=== PATIENT | female | born 1985 | race Hispanic/Latino ===

== ENCOUNTER 2025-06-22 15:44 | Emergency (ER) | payer SELFPAY ==
[~2025-06-22] VITALS: Ht 152.4 cm; Wt 68.0 kg
[~2025-06-22 15:44] MED LIST: DOCU-116 PO; IBUP-2077 PO; LEVO-70 PO
[2025-06-22 16:27] LABS: APPEARANCE,URINE CLEAR (CLEAR); GLUCOSE, URINE (UA) NEGATIVE (NEGATIVE); LEUKOCYTE ESTERASE ,URINE NEGATIVE Leu/uL (NEGATIVE); NITRATE,URINE NEGATIVE (NEGATIVE); OCCULT BLOOD,URINE NEGATIVE (NEGATIVE)
[2025-06-22 16:29] LABS: ADD UA MICROSCOPIC NO
[2025-06-22 16:30] LABS: HCG,QUALITATIVE URINE NEGATIVE (NEGATIVE)
[2025-06-22 16:34] LABS: IMMATURE GRANULOCYTE ABSOLUTE 0.02 K/uL (0-1); NUCLEATED RED BLOOD CELLS 0.0 % (0.0-0.19); PLATELET COUNT (AUTO) 240 K/uL (130-400); RED BLOOD CELL COUNT(AUTO) 3.88 MIL/uL (4.00-5.50); RED CELL DISTRIBUTION WIDTH 16.0 % (11.0-15.5); WHITE BLOOD COUNT (AUTO) 7.2 K/uL (4.8-10.8)
[2025-06-22 16:42] LABS: CREATININE 0.7 mg/dL (0.5-1.0); GLOMERULAR FILTR. RATE CALC 114.0 mL/min (>90); GLUCOSE,RANDOM 80.0 mg/dL (70-105); SODIUM SERUM 138.0 mmol/L (136-145); UREA NITROGEN, BLOOD 18.0 mg/dL (7-18)
[2025-06-22 16:47] LABS: ASPARTATE AMINOTRANSFERASE 47.0 U/L (10-37); TOTAL PROTEIN, SERUM 6.9 g/dL (6.0-8.3)
--- NOTE | 2025-06-22 18:34 | ERN ---
ED Note History of Present Illness Stated Complaint: ABDOMINAL PAIN Chief Complaint: Abdominal Pain Time Seen by MD: 15:49 Time Seen by Midlevel: 15:49 Dictation: The patient is a 39-year-old female with a history of appendectomy, who presents to the emergency department with complaints of right lower abdominal pain onset two weeks ago that has been on and off. Patient reports fevers. Denies any nausea or vomiting, denies diarrhea or constipation. Allergies: Coded Allergies: No Known Drug Allergies (Unverified Allergy, Unknown, 12/26/16) Home Meds Active Scripts Levofloxacin (Levofloxacin) 500 Mg Tablet, 1 TAB PO DAILY for 5 Days, #5 TAB 0 Refills Prov:ORESTES IZAGUIRRE GRADUATE FELLOW 07/25/24 Ibuprofen (Ibuprofen 800 mg Tab) 800 Mg Tab, 800 MG PO Q8H PRN for PAIN, #30 TAB Prov:UYEN BARNARD GRADUATE FELLOW 12/28/16 Docusate Sodium (Colace) 100 Mg Capsule, 100 MG PO BID, #60 CAP Prov:UYEN BARNARD A GRADUATE FELLOW 12/28/16 Past Medical History Past Medical History: No Pertinent History Surgical History: RN Note Reviewed/Agreed w/PFSH: Yes Review of System Dictation Constitutional: Negative for fever,chills, and weight loss Eyes: Negative for injury, pain,redness, and discharge ENT: Negative for injury,pain or swelling Cardiovascular: Negative for chest pain, palpitations, and edema Respiratory: Negative for shortness of breath, cough, and wheezing, Abdomen/GI: Negative for , nausea, vomiting, diarrhea, and constipation positive for abdominal pain Back: Negative for injury and pain : Negative for injury, bleeding and discharge MS/Extremity: Negative for injury and deformity Skin: Negative for rash, and discoloration Neuro: Negative for headache, weakness, numbness, tingling, and seizure Psych: Negative for suicide ideation, homicidal ideation, and hallucinations Initial Vital Sign VS Vital Signs Date Time Temp Pulse Resp B/P (MAP) Pulse Ox O2 Delivery O2 Flow Rate FiO2 06/22/25 15:45 97.9 76 16 122/75 98 Room Air 06/22/25 15:50 0 21 Physical Exam Dictation Vital Signs reviewed General Appearance: Alert, oriented x 3, no acute distress, well developed, nourished. Head and Face: non-traumatic. Eyes: PERRL, pink conjunctivas, eyelid no trauma, anterior chamber with arcus senilis. Ears: Pinnas intact and no signs of trauma or erythema ear canals clear and no discharge TM no erythema Nose: No discharge, no bleeding. Oropharynx: Mouth normal, tongue pink. pharynx clear,no erythema, tonsils no exudates, no abscesses noted, mucous membrane moist Neck: Supple, non-tender, no thyromegaly, no masses, no JVD, no bruits Breast:Deferred Chest:No tenderness, no crepitus, no paradoxical movement, no retractions Lungs:Clear, well-ventilated, symmetric, no rales, no wheezing, no rhonchi, no stridor, good breath sounds bilaterally Heart: Regular rate, regular rhythm, no murmur, no gallops Vascular: no peripheral edema, Abdomen: Soft, positive bowel sounds, nondistended, no guarding, nontender, no rebound, no masses no hepatomegaly, no splenomegaly, no Evans's sign, no hernias. Rectal: Deferred Genital: Deferred Neurological: Normal speech, motor function intact, sensory function intact Musculoskeletal: Neck nontender, full range of motion, back nontender, full range of motion, Extremities: nontender, full range of motion Skin: Color pink, dry, no turgor, no rash, no lacerations, no abrasions, no contusions. Lymphatic: Deferred Results (Laboratory/Radiology) Laboratory/Radiology Laboratory Tests Test 06/22/25 16:20 06/22/25 16:29 Urine Color COLORLESS (YELLOW) Urine Appearance CLEAR (CLEAR) Urine pH 5.5 (5.0-8.0) Urine Specific [place] 1.011 (1.001-1.031) Urine Protein NEGATIVE mg/dL (NEGATIVE) Urine Glucose (UA) NEGATIVE mg/dL (NEGATIVE) Urine Ketones NEGATIVE mg/dL (NEGATIVE) Urine Occult Blood NEGATIVE (NEGATIVE) Urine Nitrate NEGATIVE (NEGATIVE) Urine Bilirubin NEGATIVE mg/dL (NEGATIVE) Urine Urobilinogen 0.2 mg/dL (0.2-1.0) Urine Leukocyte Esterase NEGATIVE Demetrio/uL Urine HCG, Qualitative NEGATIVE (NEGATIVE) White Blood Count 7.2 K/uL (4.8-10.8) Red Blood Count 3.88 MIL/uL (4.00-5.50) L Hemoglobin 10.2 g/dL (12.0-16.0) L Hematocrit 32.6 % (36-48) L Mean Corpuscular Volume 84.0 fL (79-99) Mean Corpuscular Hemoglobin 26.3 pg (27.0-33.0) L Mean Corpuscular Hemoglobin Concent 31.3 g/dL (32.0-36.0) L Red Cell Distribution Width 16.0 % (11.0-15.5) H Platelet Count 240 K/uL (130-400) Mean Platelet Volume 11.1 fL (7.5-10.5) H Immature Granulocyte % (Auto) 0.3 % (0-1) Neutrophils (%) (Auto) 74.1 % (40.0-77.0) Lymphocytes (%) (Auto) 17.7 % (21.0-51.0) L Monocytes (%) (Auto) 6.1 % (3.0-13.0) Eosinophils (%) (Auto) 1.4 % (0.0-8.0) Basophils (%) (Auto) 0.4 % (0.0-5.0) Neutrophils # (Auto) 5.4 K/uL (1.8-7.7) Lymphocytes # (Auto) 1.3 K/uL (1.0-4.8) Monocytes # (Auto) 0.4 K/uL (0.1-1.0) Eosinophils # (Auto) 0.10 K/uL (0.00-0.70) Basophils # (Auto) 0.03 K/uL (0.00-0.20) Absolute Immature Granulocyte (auto 0.02 K/uL (0-1) Nucleated Red Blood Cells 0.0 % (0.0-0.19) Sodium Level 138 mmol/L (136-145) Potassium Level 4.1 mmol/L (3.5-5.1) Chloride Level 102 mmol/L (101-111) Carbon Dioxide Level 29 mmol/L (21-32) Blood Urea Nitrogen 18 mg/dL (7-18) Creatinine 0.7 mg/dL (0.5-1.0) Glomerular Filtration Rate Calc 114 mL/min (>90) Random Glucose 80 mg/dL (70-105) Total Calcium 8.5 mg/dL (8.5-10.1) Total Bilirubin 0.2 mg/dL (0.2-1.0) Aspartate Amino Transf (AST/SGOT) 47 U/L (10-37) H Alanine Aminotransferase (ALT/SGPT) 39 U/L (12-78) Alkaline Phosphatase 47 U/L (50-136) L Total Protein 6.9 g/dL (6.0-8.3) Albumin 3.5 g/dL (3.5-5.0) Lipase 54 U/L (16-77) PATIENT: CLAUDIO ZUÑIGA MR#: [id number] : 1985 SEX: F AGE: 39 LOCATION: [facility] ORDER 1640 STATUS: REG REPORT#: [id number] SERVICE 1640 REASON: rigth side pain ORDERING PHYSICIAN: ZHANG SANTOS PROCEDURE: PELVCOMP - US PELVIC NON-OB COMP EXAM: US Pelvis, Complete Transabdominal COMPARISON: None provided. CLINICAL HISTORY: Right-sided pain TECHNIQUE: Transabdominal pelvic ultrasound (complete) with image documentation. FINDINGS: ENDOMETRIUM: Normal thickness. UTERUS/CERVIX: Bulky in size, measuring 11.7 x 3.9 x 6.4 cm. No uterine fibroid or other mass evident. RIGHT OVARY: Normal Doppler flow. No abnormal mass. LEFT OVARY: Normal Doppler flow. No abnormal mass. FREE FLUID: No free fluid. IMPRESSION: Bulky uterus without evidence of fibroid or mass. No acute pelvic pathology. /[facility] Reviewed?: Yes ED Course ED Course Orders Procedure Category Date Status Time Cbc With Differential LAB 06/22/25 Complete 16:02 Comprehensive LAB 06/22/25 Complete Metabolic Panel 16:02 ,Urine Test LAB 06/22/25 Complete 16:02 Urinalysis Profile LAB 06/22/25 Complete 16:02 Lipase LAB 06/22/25 Complete 16:02 Us Pelvic Non-Ob Comp US 06/22/25 Resulted 16:40 Vital Signs Date Time Temp Pulse Resp B/P (MAP) Pulse Ox O2 Delivery O2 Flow Rate FiO2 06/22/25 18:36 97.9 72 16 125/74 98 Room Air* 0 21 06/22/25 15:50 97.9 76 16 122/75 98 Room Air* 0 21 06/22/25 15:45 97.9 76 16 122/75 98 Room Air Medical Decision Making MDM The patient is a 39-year-old female with a history of appendectomy, who presents to the emergency department with complaints of right lower abdominal pain onset two weeks ago that has been on and off. Patient reports fevers. Denies any nausea or vomiting, denies diarrhea or constipation. CBC showed no leukocytosis mild normocytic anemia, chemistry showed normal renal function, negative lipase, urinalysis unremarkable. Pelvic exam discharged of bulky uterus. On physical exam patient is in no acute distress, nontender abdomen to palpation, there is no fever no tachycardia, no leukocytosis. Patient will be discharged follow up with primary doctor. Differential diagnosis: Ovarian cyst, UTI, electrolyte imbalance, gastroenteritis Need for hospitalization: Patient does not meet criteria for hospitalization. There are no social concerns with this patient. DX & DISP Disposition: Discharge Departure Impression: Primary Impression: Abdominal pain Condition: Stable Additional Instructions: Your were unremarkable. Please follow up with the primary doctor in 1-2 days. FOLLOW-UP WITH PRIMARY CARE PROVIDER IN 1 TO 2 DAYS. TAKE MEDICATIONS DIRECTED HERE IN THE EMERGENCY ROOM. OKAY TO CONTINUE HOME MEDICATIONS UNLESS OTHERWISE DISCUSSED DURING YOUR VISIT IN THE EMERGENCY ROOM TODAY. RETURN TO YOUR NEAREST EMERGENCY ROOM IF SYMPTOMS WORSEN OR IF THERE IS NO IMPROVEMENT. CALL 911 IF YOU NEED IMMEDIATE ASSISTANCE. TAKE TYLENOL [id number] NEEDED AND IF NO CONTRAINDICATIONS ARE PRESENT. INCREASE ORAL HYDRATION. A WOUND CULTURE OR URINE CULTURE WAS ORDERED HERE IN THE EMERGENCY ROOM DEPARTMENT PLEASE FOLLOW-UP WITH PRIMARY CARE PROVIDER AND ADVISE THEM TO GET REPEAT PORTS FROM OUR FACILITY. IF YOU HAD ANY ALISSA WRAP/SPLINTS THAT WERE APPLIED HERE, PLEASE DO NOT REMOVE THEM UNTIL YOU SEE YOUR PRIMARY CARE OR SPECIALTY. Referrals: SELF,REFERRAL (PCP) Time of Disposition: 19:05 I have reviewed the case, and I agree with, Diagnosis and Plan ZHANG SANTOS [employer] Jun 22, 2025 18:34
[2025-06-22 18:36] VITALS: BP 125/74; PULSE 72; RESP 16; TEMP 97.9; O2SAT 98
--- NOTE | 2025-06-22 18:57 | HMCIMG ---
EXAM: US Pelvis, Complete Transabdominal COMPARISON: None provided. CLINICAL HISTORY: Right-sided pain TECHNIQUE: Transabdominal pelvic ultrasound (complete) with image documentation. FINDINGS: ENDOMETRIUM: Normal thickness. UTERUS/CERVIX: Bulky in size, measuring 11.7 x 3.9 x 6.4 cm. No uterine fibroid or other mass evident. RIGHT OVARY: Normal Doppler flow. No abnormal mass. LEFT OVARY: Normal Doppler flow. No abnormal mass. FREE FLUID: No free fluid. IMPRESSION: Bulky uterus without evidence of fibroid or mass. No acute pelvic pathology. /[place]
== END 2025-06-22 19:15 | disposition home or self-care (01) ==
LOC: EDH 15:44
DX: R10.31 Right lower quadrant pain (principal); Z79.899 Other long term (current) drug therapy
CPT/HCPCS: 36415; 76856; 80053; 81003; 81025; 83690; 85025; 99284